=== PATIENT | male | born 1950 | race Caucasian/White ===

== ENCOUNTER 2018-06-14 08:00 | Outpatient (CLI) | payer MEDICARE, OTHER ==
[2018-06-14] MEDS ORDERED: NORVASC5 MG PO (08:13)
[2018-06-14] MEDS ORDERED: LOSARTAN/HCT TAB 100 (08:14)
[2018-06-14] MEDS ORDERED: TOPROL XL100 MG PO (08:14)
[2018-06-14] MEDS ORDERED: FUROSEMIDE40 MG PO (08:14)
[2018-06-14] MEDS ORDERED: K-DUR20 MEQ PO (08:16)
[2018-06-14 08:45] LABS: HEMATOCRIT 42.7 % (42.0-54.0); HEMOGLOBIN 14.6 g/dL (13.5-17.5); MCH 31.3 pg (26.0-34.0); MCHC 34.2 g/dL (31.0-37.0); MCV 91.6 fL (80.0-100.0); MEAN PLATELET VOLUME 10.3 fL (7.4-10.4); RBC 4.66 10x6/uL (4.20-6.10); RDW 12.8 % (11.5-14.5); WBC 5.9 10x3/uL (4.8-10.8)
== END 2018-06-14 08:01 | disposition home or self-care (01) ==
LOC: D.OPS 08:00 → EDSTATUS 06-15 15:30 → D.PAN 06-15 15:30
PROVIDERS: Anesthesiology
DX: M75.100 Unspecified rotator cuff tear or rupture of unspecified shoulder, not specified as traumatic (principal); Z53.9 Procedure and treatment not carried out, unspecified reason; Z01.812 Encounter for preprocedural laboratory examination